=== PATIENT | male | born 1980 | race Hispanic/Latino ===

== ENCOUNTER 2022-06-08 15:09 | Emergency (ER) | payer OTHER ==
[~2022-06-08] VITALS: Ht 167.6 cm; Wt 112.5 kg
[2022-06-08 15:24] VITALS: BP 137/75
[2022-06-08] MEDS ORDERED: DiphenhydrAMINE HCL 50 MG/ML VIAL IV ONE (18:00)
[2022-06-08] MEDS ORDERED: FAMOTIDINE 20MG VIAL IV ONE (18:00)
[2022-06-08] MEDS ORDERED: 0.9% NACL 500ML IV.SOLN 500 ML IV ONE (18:00)
[2022-06-08] MEDS ORDERED: SOLU-MEDROL 125MG VIAL IVP ONE (18:00)
[2022-06-08] MEDS ORDERED: DIPH25 PO (19:03)
== END 2022-06-08 19:29 | disposition home or self-care (01) ==
LOC: EDH 15:09
DX: T78.40XA Allergy, unspecified, initial encounter (principal); F41.9 Anxiety disorder, unspecified; I10 Essential (primary) hypertension; X58.XXXA Exposure to other specified factors, initial encounter
CPT/HCPCS: 99284; 96374; 96375; 96361; J7040; J1200; J3490; J2930